=== PATIENT | female | born 1995 | race Caucasian/White ===

== ENCOUNTER 2019-02-21 13:27 | Emergency (ER) | payer OTHER ==
[2019-02-21] MEDS ORDERED: NORMAL SALINE 1000 ML 1,000 ML IV ONE (14:13)
--- NOTE | 2019-02-21 14:14 | ER Document Report ---
ED Medical Screen (RME) - General Chief Complaint: Bloody Stools Stated Complaint: ABDOMINAL PAIN Time Seen by Provider: 02/21/19 14:09 Mode of Arrival: Ambulatory Information source: Patient Notes: Patient presents complaining of lower pelvic pain and right lower back pain. Patient states she was treated for UTI recently has had 2 doses of Bactrim. Patient reports fever of 101 at home and was sent here for evaluation for pyelonephritis. Patient states she had UTI symptoms for the past 6 days. Patient states that prior to starting the antibiotics Bactrim she had been on clindamycin for over a week. Patient also reports having bloody diarrhea. I have greeted and performed a rapid initial assessment of this patient. A comprehensive ED assessment and evaluation of the patient, analysis of test results and completion of the medical decision making process will be conducted by additional ED providers. - Related Data Allergies/Adverse Reactions: azithromycin [From Zithromax Z-Sin] Allergy (Verified 02/21/19 14:06) Physical Exam - Vital signs Vitals: Temp Pulse Resp BP Pulse Ox 99.7 F 89 14 117/63 100 02/21/19 13:54 02/21/19 13:54 02/21/19 13:54 02/21/19 13:54 02/21/19 13:54 - General General appearance: Alert Notes: Lower pelvic tenderness, right lower lumbar paraspinal tenderness Course - Vital Signs Vital signs: Temp Pulse Resp BP Pulse Ox 99.7 F 89 14 117/63 100 02/21/19 13:54 02/21/19 13:54 02/21/19 13:54 02/21/19 13:54 02/21/19 13:54
[2019-02-21 14:43] LABS: APPEARANCE,URINE SLIGHTLY-CLOUDY; BILIRUBIN,URINE NEGATIVE (NEGATIVE); GLUCOSE, URINE NEGATIVE (NEGATIVE); KETONES,URINE 80 mg/dL (NEGATIVE); LEUKOCYTE ESTERASE,URINE NEGATIVE (NEGATIVE); NITRITE,URINE NEGATIVE (NEGATIVE); PROTEIN,URINE 30 mg/dL (NEGATIVE); UROBILINOGEN,URINE NEGATIVE mg/dL (<2.0)
[2019-02-21 14:46] LABS: COLOR,URINE DARK YELLOW
[2019-02-21 15:49] LABS: ABSOLUTE LYMPHOCYTES (AUTO) 1.5 10^3/uL (0.5-4.7); ABSOLUTE MONOCYTES (AUTO) 0.7 10^3/uL (0.1-1.4); ABSOLUTE NEUT (AUTO) 7.3 10^3/uL (1.7-8.2); BASOPHILS % (AUTO) 0.3 % (0-2); HEMATOCRIT 38.9 % (36.0-47.0); HEMOGLOBIN 13.1 g/dL (12.0-15.5); LYMPHOCYTES % (AUTO) 16.1 % (13-45); MEAN CORPUSCULAR HEMOGLOBIN 31.1 pg (27.0-33.4); MEAN CORPUSCULAR HGB CONC 33.7 g/dL (32.0-36.0); MEAN CORPUSCULAR VOLUME 92 fl (80-97); MONOCYTES % (AUTO) 7.5 % (3-13); PLATELET COUNT 185 10^3/uL (150-450); RED BLOOD COUNT 4.22 10^6/uL (3.72-5.28); RED CELL DISTRIBUTION WIDTH 12.7 % (11.5-14.0); SEGMENTED NEUTROPHILS % (AUTO) 76.1 % (42-78); TOTAL CELLS COUNTED % (AUTO) 100 %; WHITE BLOOD COUNT 9.5 10^3/uL (4.0-10.5)
[2019-02-21] MEDS ORDERED: FENTANYL CITRATE INJ/PF 100 MCG/2 ML AMPUL IV ONE (15:55)
[2019-02-21] MEDS ORDERED: ONDANSETRON HCL INJ/PF 4 MG/2 ML SDV IV ONE (15:55)
--- NOTE | 2019-02-21 15:58 | ER Document Report ---
ED GI/ - General Chief Complaint: Abdominal Pain Stated Complaint: ABDOMINAL PAIN Time Seen by Provider: 02/21/19 14:09 Primary Care Provider: NAS CALLE MD [ACTIVE STAFF] - Follow up as needed BANDAR ALFARO MD [Primary Care Provider] - Follow up as needed Mode of Arrival: Ambulatory Notes: RME NOTE: Patient presents complaining of lower pelvic pain and right lower back pain. Patient states she was treated for UTI recently has had 2 doses of Bactrim. Patient reports fever of 101 at home and was sent here for evaluation for pyelonephritis. Patient states she had UTI symptoms for the past 6 days. Patient states that prior to starting the antibiotics Bactrim she had been on cl indamycin for over a week. Patient also reports having bloody diarrhea. MY HPI: Patient is a 23-year-old female presents to the emergency department with generalized abdominal pain for the last 5 days. Patient also complaining of diarrhea that was initially streaked with blood. Patient's denying any dysuria but is complaining about vaginal discharge. Patient's denying any nausea. Upon assessment of patient's abdomen, all 4 quadrants patient starts crying in pain. - Related Data Allergies/Adverse Reactions: azithromycin [From Zithromax Z-Sin] Allergy (Verified 02/21/19 14:06) Past Medical History - General Information source: Patient - Social History Smoking Status: Never Smoker Family History: Reviewed & Not Pertinent Patient has suicidal ideation: No Patient has homicidal ideation: No Review of Systems - Review of Systems Constitutional: Fever EENT: No symptoms reported Cardiovascular: No symptoms reported Respiratory: No symptoms reported Gastrointestinal: See HPI Genitourinary: See HPI Female Genitourinary: See HPI Musculoskeletal: No symptoms reported Skin: No symptoms reported Hematologic/Lymphatic: No symptoms reported Neurological/Psychological: No symptoms reported Physical Exam - Vital signs Vitals: Temp Pulse Resp BP Pulse Ox 99.7 F 89 14 117/63 100 02/21/19 13:54 02/21/19 13:54 02/21/19 13:54 02/21/19 13:54 02/21/19 13:54 - Notes Notes: GENERAL: Alert, interacts well. Pallor noted. HEAD: Normocephalic, atraumatic. EYES: Pupils equal, round, and reactive to light. Extraocular movements intact. ENT: Oral mucosa moist, tongue midline. NECK: Full range of motion. Supple. Trachea midline. LUNGS: Clear to auscultation bilaterally, no wheezes, rales, or rhonchi. No respiratory distress. HEART: Regular rate and rhythm. No murmur ABDOMEN: Soft, generalized tenderness noted all 4 quadrants. Non-distended. Bowel sounds present in all 4 quadrants. EXTREMITIES: Moves all 4 extremities spontaneously. No edema, normal radial and dorsalis pedis pulses bilaterally. No cyanosis. BACK: no cervical, thoracic, lumbar midline tenderness. No saddle anesthesia, normal distal neurovascular exam. CVA tenderness noted bilaterally. NEUROLOGICAL: Alert and oriented x3. Normal speech. cranial nerves II through XII grossly intact. PSYCH: Normal affect, normal mood. SKIN: Warm, dry, normal turgor. No rashes or lesions noted. Pelvic: Irrigation Service Technician Ina RN, white discharge noted in the cul-de-sac, no cervical motion tenderness, no adnexal tenderness noted bilaterally. Genitalia: Irrigation Service Technician Ina VOGT, rectum reveals no signs of external or internal hemorrhoids, no anal fissures noted. No melena noted, no bright red blood per rectum noted. Course - Re-evaluation Re-evalutation: 02/21/19 19:05 Microbiology 02/21/19 14:13 - Preliminary Stool - Stool Laboratory 02/21/19 02/21/19 02/21/19 14:13 14:13 14:21 WBC RBC Hgb Hct MCV MCH MCHC RDW Plt Count Lymph % (Auto) [place] % (Auto) Eos % (Auto) Baso % (Auto) Absolute Neuts (auto) Absolute Lymphs (auto) Absolute Monos (auto) Absolute Eos (auto) Absolute Basos (auto) Seg Neutrophils % Sodium Potassium Chloride Carbon Dioxide Anion Gap BUN Creatinine Est GFR ( Amer) Est GFR (MDRD) Non-Af Glucose Lactic Acid Calcium Total Bilirubin Direct Bilirubin Neonat Total Bilirubin Neonat Direct Bilirubin Neonat Indirect Bili AST ALT Alkaline Phosphatase Total Protein Albumin Lipase Serum HCG, Qual Urine Color DARK YELLOW Urine Appearance SLIGHTLY-CLOUDY Urine pH 5.0 Ur Specific [place] 1.020 Urine Protein 30 H Urine Glucose (UA) NEGATIVE Urine Ketones 80 H Urine Blood NEGATIVE Urine Nitrite NEGATIVE Urine Bilirubin NEGATIVE Urine Urobilinogen NEGATIVE Ur Leukocyte Esterase NEGATIVE Urine WBC (Auto) 7 Urine RBC (Auto) 8 Urine Bacteria (Auto) 2+ Squamous Epi Cells Auto 7 Urine Mucus (Auto) FEW Urine Ascorbic Acid 40 H Stl Occult Blood (ICT) POSITIVE POC Stool Occult Blood POSITIVE Epi Cells (Wet Prep) Bacteria (Wet Prep) Trichomonas (Wet Prep) Vaginal WBC Vaginal Yeast 02/21/19 02/21/19 02/21/19 15:15 15:15 15:15 WBC 9.5 RBC 4.22 Hgb 13.1 Hct 38.9 MCV 92 MCH 31.1 MCHC 33.7 RDW 12.7 Plt Count 185 Lymph % (Auto) 16.1 [place] % (Auto) 7.5 Eos % (Auto) 0.0 Baso % (Auto) 0.3 Absolute Neuts (auto) 7.3 Absolute Lymphs (auto) 1.5 Absolute Monos (auto) 0.7 Absolute Eos (auto) 0.0 Absolute Basos (auto) 0.0 Seg Neutrophils % 76.1 Sodium 136.7 L Potassium 3.6 Chloride 103 Carbon Dioxide 22 Anion Gap 12 BUN 7 Creatinine 0.68 Est GFR ( Amer) > 60 Est GFR (MDRD) Non-Af > 60 Glucose 77 Lactic Acid Calcium 9.3 Total Bilirubin 0.4 Direct Bilirubin 0.2 Neonat Total Bilirubin Not Reportable Neonat Direct Bilirubin Not Reportable Neonat Indirect Bili Not Reportable AST 34 ALT 29 Alkaline Phosphatase 67 Total Protein 7.2 Albumin 4.1 Lipase 57.2 Serum HCG, Qual NEGATIVE Urine Color Urine Appearance Urine pH Ur Specific [place] Urine Protein Urine Glucose (UA) Urine Ketones Urine Blood Urine Nitrite Urine Bilirubin Urine Urobilinogen Ur Leukocyte Esterase Urine WBC (Auto) Urine RBC (Auto) Urine Bacteria (Auto) Squamous Epi Cells Auto Urine Mucus (Auto) Urine Ascorbic Acid Stl Occult Blood (ICT) POC Stool Occult Blood Epi Cells (Wet Prep) Bacteria (Wet Prep) Trichomonas (Wet Prep) Vaginal WBC Vaginal Yeast 02/21/19 02/21/19 18:15 18:15 WBC RBC Hgb Hct MCV MCH MCHC RDW Plt Count Lymph % (Auto) [place] % (Auto) Eos % (Auto) Baso % (Auto) Absolute Neuts (auto) Absolute Lymphs (auto) Absolute Monos (auto) Absolute Eos (auto) Absolute Basos (auto) Seg Neutrophils % Sodium Potassium Chloride Carbon Dioxide Anion Gap BUN Creatinine Est GFR ( Amer) Est GFR (MDRD) Non-Af Glucose Lactic Acid 1.1 Calcium Total Bilirubin Direct Bilirubin Neonat Total Bilirubin Neonat Direct Bilirubin Neonat Indirect Bili AST ALT Alkaline Phosphatase Total Protein Albumin Lipase Serum HCG, Qual Urine Color Urine Appearance Urine pH Ur Specific [place] Urine Protein Urine Glucose (UA) Urine Ketones Urine Blood Urine Nitrite Urine Bilirubin Urine Urobilinogen Ur Leukocyte Esterase Urine WBC (Auto) Urine RBC (Auto) Urine Bacteria (Auto) Squamous Epi Cells Auto Urine Mucus (Auto) Urine Ascorbic Acid Stl Occult Blood (ICT) POC Stool Occult Blood Epi Cells (Wet Prep) 3+ EPITHELIALS SEEN Bacteria (Wet Prep) 4+ BACTERIA SEEN Trichomonas (Wet Prep) NO TRICHOMONAS SEEN Vaginal WBC 1+ WBCS SEEN Vaginal Yeast NO YEAST SEEN Abdomen/Pelvis CT 02/21/19 15:55 IMPRESSION: Changes of ascites. Otherwise,normal CT abdomen and pelvis with contrast. Patient's CT does show signs of colitis. Patient will be treated for bacterial vaginosis via wet mount. Treatment should be Flagyl. Will add Cipro for colitis diagnosis. Discussed use of pain medication and its potential constipating side effects. Discussed close follow-up with gastroenterology for a colonoscopy as needed. Patient has no signs of leukocytosis, is non-tachycardic, afebrile, stable for discharge. 02/21/19 19:09 C. difficile testing pending. - Vital Signs Vital signs: Temp Pulse Resp BP Pulse Ox 99.7 F 89 14 117/63 100 02/21/19 13:54 02/21/19 13:54 02/21/19 13:54 02/21/19 13:54 02/21/19 13:54 - Laboratory Result Diagrams: 02/21/19 15:15 02/21/19 15:15 Laboratory results interpreted by me: 02/21/19 02/21/19 14:13 15:15 Sodium 136.7 L Urine Protein 30 H Urine Ketones 80 H Urine Ascorbic Acid 40 H Discharge - Discharge Clinical Impression: Colitis, Bacterial vaginosis Condition: Stable Disposition: HOME, SELF-CARE Instructions: Colitis, Nonspecific ([facility]), Vaginosis, Bacterial ([facility]) Additional Instructions: As we discussed you have been seen and treated in the emergency department for generalized abdominal pain, diarrhea, vaginal discharge. Please make sure you are taking antibiotics as prescribed. Please only use pain medication as needed. Please no pain medication can cause constipation. Please make sure you are taking the stool softener such as Colace [id number]. Please follow-up with your primary care provider and gastroenterology in the next 24 to 48 hours. Phone numbers will be provided in this packet. Return to the emergency room for any concerns. Prescriptions: Ciprofloxacin HCl [Cipro 500 mg Tablet] 500 mg PO BID #20 tablet Metronidazole [Flagyl 500 mg Tablet] 500 mg PO BID #14 tablet Hydrocodone/Acetaminophen [[place] 5-325 mg Tablet] 1 tab PO Q6 PRN #15 tablet PRN Reason: Forms: Return to Work Referrals: BANDAR ALFARO MD [Primary Care Provider] - Follow up as needed NAS CALLE MD [ACTIVE STAFF] - Follow up as needed
[2019-02-21 16:10] LABS: ALBUMIN 4.1 g/dL (3.5-5.0); ALKALINE PHOSPHATASE 67 U/L (38-126); ANION GAP 12 (5-19); ASPARTATE AMINO TRANSFERASE 34 U/L (14-36); BILIRUBIN,DIRECT 0.2 mg/dL (0.0-0.4); BILIRUBIN,TOTAL 0.4 mg/dL (0.2-1.3); BLOOD UREA NITROGEN 7 mg/dL (7-20); CALCIUM 9.3 mg/dL (8.4-10.2); CARBON DIOXIDE 22 mmol/L (22-30); CHLORIDE 103 mmol/L (98-107); GLUCOSE 77 mg/dL (75-110); POTASSIUM 3.6 mmol/L (3.6-5.0); TOTAL PROTEIN 7.2 g/dL (6.3-8.2)
--- NOTE | 2019-02-21 17:44 | RADIOLOGY REPORT (SQ) ---
EXAM DESCRIPTION: CT ABD/PELVIS WITH IV ONLY COMPLETED DATE/TIME: 02/21/2019 5:15 pm REASON FOR STUDY: Diffuse lower abdominal pain. COMPARISON: None. TECHNIQUE: CT scan of the abdomen and pelvis performed using helical scanning technique with dynamic intravenous contrast injection. No oral contrast. Images reviewed with lung, soft tissue, and bone windows. Reconstructed coronal and sagittal MPR images reviewed. Delayed images for evaluation of the urinary system also acquired. All images stored on PACS. All CT scanners at this facility use dose modulation, iterative reconstruction, and/or weight based d osing when appropriate to reduce radiation dose to as low as reasonably achievable (ALARA). [facility]: Dose Right [facility]: CareDose [facility]: Dose Right [facility]: Teradose 4D [facility]: [employer] CONTRAST TYPE AND DOSE: contrast/concentration: Isovue 350.00 mg/ml; Total Contrast Delivered: 65.0 ml; Total Saline Delivered: 65.0 ml RENAL FUNCTION: NA RADIATION DOSE: CT Rad equipment meets quality standard of care and radiation dose reduction techniq ues were employed. CTDIvol: 5.0 - 5.5 mGy. DLP: 533 mGy-cm.. LIMITATIONS: None. FINDINGS: LOWER CHEST: No significant findings. No nodules or infiltrates. LIVER: No abnormality. SPLEEN: No abnormality. PANCREAS: No abnormality. GALLBLADDER: No abnormality. ADRENAL GLANDS: No significant masses or asymmetry. RIGHT KIDNEY AND URETER: Normal. LEFT KIDNEY AND URETER: Normal. . AORTA AND VESSELS: No abnormality. . No dissection. Renal arteries, SMA, celiac without stenosis. RETROPERITONEUM: No retroperitoneal adenopathy, hemorrhage or masses. BOWEL AND PERITONEAL CAVITY: Diffuse thickening of the mucosa of the distal ascending colon, transver se colon, descending and rectosigmoid colon possibility of colitis is not excluded. . Umbilical her lynn containing fat. APPENDIX: Normal. PELVIS: Urinary bladder: No abnormality. Abdominal wall: Umbilical hernia containing fat. No masses. No hernias. Uterus: No abnormality. BONES: No significant or acute findings. OTHER: Small amount of ascites in the pelvis. IMPRESSION: Changes of ascites. Otherwise,normal CT abdomen and pelvis with contrast. TECHNICAL DOCUMENTATION: JOB ID: [id number] Quality ID # [id number]: Final reports with documentation of one or more dose reduction techniques (e.g., Au tomated exposure control, adjustment of the mA and/or kV according to patient size, use of iterative reconstruction technique) 2010 [employer]- All Rights Reserved Reading location - IP/workstation name: [email or web address]
[2019-02-21] MEDS ORDERED: METRONIDAZOLE 500 MG TABLET PO ONE (18:18)
[2019-02-21] MEDS ORDERED: CIPROFLOXACIN HCL 500 MG TABLET PO ONE (18:18)
[2019-02-21] MEDS ORDERED: MORPHINE SULFATE 10 MG/ML INJ IV ONE (18:19)
[2019-02-21 18:47] LABS: T.VAGINALIS (WET MOUNT) NO TRICHOMONAS SEEN; WBCS (WET MOUNT) 1+ WBCS SEEN; YEAST (WET MOUNT) NO YEAST SEEN
[2019-02-21 18:48] LABS: BACTERIA (WET MOUNT) 4+ BACTERIA SEEN; EPITHELIALS (WET MOUNT) 3+ EPITHELIALS SEEN
[2019-02-21 19:25] VITALS: BP 114/67
[2019-02-21 19:25] LABS: C DIFFICILE GDH NEGATIVE (NEGATIVE)
[2019-02-21 20:18] LABS: CHLAM PCR NOT DETECTED (NOT DETECT)
== END 2019-02-21 19:26 | disposition home or self-care (01) ==
LOC: ER 13:27
DX: K52.9 Noninfective gastroenteritis and colitis, unspecified (principal); N76.0 Acute vaginitis; B96.89 Other specified bacterial agents as the cause of diseases classified elsewhere; R10.84 Generalized abdominal pain; K92.1 Melena; R50.9 Fever, unspecified; R18.8 Other ascites; Z88.1 Allergy status to other antibiotic agents
CPT/HCPCS: 36415; 87040; 87045; 87086; 87205; 87210; 83605; 83690; 84703; 85025; 82272; 80053; 81001; 87491; 87591; 87324; 87449; 74177; J3010; J2270; J2405; J7030; 96361; 96374; 96375; 99284